=== PATIENT | female | born 1990 | race Two or more races ===

== ENCOUNTER → 2025-09-01 | Emergency (ER) | payer OTHER ==
[~2025-09-01] VITALS: Ht 149.9 cm; Wt 68.0 kg
[~2025-09-01] MED LIST: 0.9 % SODIUM CHLORIDE 1,000 ML IV SCH; AVIDOXY100 MG PO; CEFTRIAXONE SODIUM 2,000 MG VIAL IV ONE; CEFTRIAXONE SODIUM 2,000 MG VIAL ONE; KETO10TA2 PO; LACTULOSE 20 G/30 ML BLIST.PACK ONE; LACTULOSE 20 G/30 ML BLIST.PACK PO STA; MAGNESIUM HYDROXIDE 30 ML BLIST.PACK PO ONE; MAGNESIUM HYDROXIDE 400 MG/5 ML ML PO STA; MEDROLPACK PO; METRONIDAZOLE500 MG PO; MINERAL OIL 30 ML BLIST.PACK ONE; MINERAL OIL 30 ML BLIST.PACK PO STA; MORPHINE SULFATE 2 MG/ML SYRINGE IV STA; MORPHINE SULFATE 4 MG/ML CARTRIDGE IV STA; NORFLEX100MG PO
[2025-09-01 20:05] LABS: BASO % 0.4 % (0.1-1.2); EOS # 0.20 (0.04-0.54); EOS % 2.1 % (0.7-7.0); LYMPH # 2.95 (1.18-3.74); LYMPH % 31.6 % (19.3-53.1); MEAN PLATELET VOLUME 9.40 fl (9.4-12.4); MONO # 0.59 (0.24-0.82); MONO % 6.3 % (4.7-12.5); NEUT # 5.53 (1.56-6.13); NEUT % 59.4 % (34.0-71.1); RED CELL DISTRIBUTION WIDTH 12.8 % (11.6-14.4)
[2025-09-01 20:09] LABS: ERYTHROCYTE SEDIMENTATION RATE 5 mm/hr (0-20)
[2025-09-01 20:28] LABS: INR 1.0
[2025-09-01 20:32] LABS: ALT/SGPT 15.0 U/L (12-78); AST/SGOT 10.0 U/L (15-37); BILIRUBIN TOTAL 0.56 mg/dL (0.3-1.2); BUN CREA RATIO 17.0 (7.0-25.0); CREATININE SERUM 0.7 mg/dL (0.55-1.02); GFR 94.68; GLOBULINA 3.6 G/DL (2.4-3.5); GLUCOSE FASTING 74.0 mg/dL (65-100); OSMOLALITY SERUM 276.0 MOSM/KG (275-295)
[2025-09-01 20:58] LABS: URINE APPEARANCE Clear; URINE BILIRRUBIN Negative (NEGATIVE); URINE BLOOD Negative; URINE COLOR Yellow; URINE GLUCOSE Negative (NEGATIVE); URINE KETONE Negative (NEGATIVE); URINE LEUKOCYTE Small; URINE NITRATE Negative; URINE PROTEIN Negative (NEGATIVE); URINE UROBILINOGEN 0.2 E.U./dl
[2025-09-01 21:02] LABS: URINE EPITHELIAL CELLS 37.2 uL (0.0-38.8); URINE RBC 2.6 uL (0.0-20.8); URINE WBC 14.3 uL (0.0-23.2)
[2025-09-01 21:04] LABS: URINE CAST 0.00 uL (0.0-1.40)
== END | disposition home or self-care (01) ==
LOC: ER 18:27
PROVIDERS: Physician Assistant Medical
DX: N73.0 Acute parametritis and pelvic cellulitis (principal); N39.0 Urinary tract infection, site not specified; M54.59 Other low back pain; M41.80 Other forms of scoliosis, site unspecified; R10.9 Unspecified abdominal pain; R10.20 Pelvic and perineal pain unspecified side; E03.8 Other specified hypothyroidism